=== PATIENT | male | born 1980 | race Caucasian/White ===

== ENCOUNTER 2019-02-09 11:12 | Emergency (ER) | payer OTHER ==
[~2019-02-09] VITALS: Ht 177.8 cm; Wt 83.9 kg
[~2019-02-09 11:12] MED LIST: CEPH500 PO; CLIN300 PO; CLOT1TC TOP; CODACE30 PO; CRUTCH4 USE; CYCL10 PO; HYDACE5 PO; IBUHYD PO; IBUP800 PO; NAPR500 PO; NAPR550 PO; OXYACE5T PO; OXYACE7.5T PO; PROM25 PO; RXOXYACE PO; RXSULTRIDS PO; SULTRIDS PO; TRAM50 PO; WARF5 PO
[2019-02-09] MEDS ORDERED: Voltaren100 GM TOP (12:12)
[2019-02-09] MEDS ORDERED: IBUP800 PO (12:12)
== END 2019-02-09 12:45 | disposition home or self-care (01) ==
LOC: ER 11:12
DX: M79.603 Pain in arm, unspecified (principal); F17.200 Nicotine dependence, unspecified, uncomplicated; Z86.718 Personal history of other venous thrombosis and embolism; Z88.0 Allergy status to penicillin
CPT/HCPCS: 76882; 96372; 99283-25; J1885